=== PATIENT | female | born 1980 | race African-American/Black ===

== ENCOUNTER 2017-05-07 11:39 | Inpatient (IN) ==
--- NOTE | 2017-05-07 12:35 | Emergency Department Note ---
Timothy Woodson Rolonda, am scribing for, and in the presence of, Del Juan MD 12: 30. Yessica Woodson James D, MD, personally performed the services described in this documentation, ascribed by Michelle Aguirre in my presence, and it is both accurate and complete . Arrival - Arrival ED Nursing Triage Note: pt ambulatory to triage with c/o having suicidal ideations with hallucinations. pt states she has been in [facility] 2 times and has been thrown out. pt states she does have a plan to shoot herself in the head. pt states there is people down the road that want to kill her also. Mode of Arrival: Ambulatory Limitations: No Limitations Source: Patient, Old Records Reviewed, RN Notes Reviewed - History of Present Illness Onset (ago): unknown Consistency: constant Severity: severe Severity scale (1-10): 7 <Del Juan - Last Filed: 05/07/17 15:36> <Ty Marcos - Last Filed: 05/07/17 19:18> - Arrival Chief Complaint: Psychiatric Stated Complaint: seeing things that hurt - History of Present Illness HPI Narrative: Pt is a 37 y/o female who presents to the ED for further evaluation of SI with an unknown onset. Pt states that there is someone who is trying to kill her every night. Pt states that she does spice, marijuana, cocaine, and meth. She states that she is wanting to hurt herself. Pt states that she has been to [facility] but she keeps getting kicked out. No other history available. (Michelle Aguirre) Pt is a 37 y/o female who presents to the ED for further evaluation of SI with an unknown onset. Pt states that there is someone who is trying to kill her every night. Pt states that she does spice, marijuana, cocaine, and meth. She states that she is wanting to hurt herself. Pt states that she has been to [facility] but she keeps getting kicked out. No other history available. (Del Juan) Allergies/Adverse Reactions: Allergies Allergy/AdvReac Type Severity Reaction Status Date / Time No Known Allergies Allergy Verified 05/07/17 11:47 Home Medications: Home Medications Medication Instructions Recorded Confirmed Type No Known Home Medications [No 05/07/17 05/07/17 History Known Home Medications] Review of System - Review of System 12 point system: reviewed and no additional remarkable complaints except as stated - Review of System Constitutional: Absent: chills Eyes: Absent: discharge Respiratory: Absent: cough Cardiovascular: Absent: chest pain Gastrointestinal: Absent: abdominal pain Genitourinary female: Absent: dysuria Musculoskeletal: Absent: arthralgia Skin: Absent: rash Psychiatric: Present: suicidal thoughts, auditory hallucinations, visual hallucinations. Absent: anxiety Endocrine: Absent: cold intolerance <Del Juan - Last Filed: 05/07/17 15:36> Medical,Surgical,& Family Hx - Medical History Psychological: History of: Schizophrenia, Psychiatric Problems - Social History Smoking Status: Current every day smoker Frequency of Alcohol Use: Occasionally Type of Drug Use: Cocaine, Heroin, Opiates, Marijuana, Methamphetamine <Del Juan - Last Filed: 05/07/17 15:36> Exam <Del Juan - Last Filed: 05/07/17 15:36> <Ty Marcos - Last Filed: 05/07/17 19:18> Vital Signs: Vital Signs Temperature 99.1 F 05/07/17 12:35 Pulse Rate 116 H 05/07/17 12:35 Respiratory Rate 18 05/07/17 12:35 Blood Pressure 118/87 05/07/17 12:35 O2 Sat by Pulse Oximetry 97 05/07/17 11:41 GENERAL: This is a well-nourished well-developed black female, disheveled in no apparent distress. VITAL SIGNS: Reviewed HEENT: Head is atraumatic and normocephalic. Pupils are equal round react to light. Extraocular movements are intact. Oropharynx is benign with moist mucous membranes. NECK: Neck is soft and supple without tenderness. There are no masses. There is no lymphadenopathy. LUNGS: Lungs are clear to auscultation. Chest rises symmetrically. There is no chest wall tenderness. CV: Heart is regular rate and rhythm without murmurs rubs or gallops. ABDOMEN: Abdomen is soft, nontender to palpation. There are no abdominal abnormal masses palpated. There is no organomegaly. Bowel sounds are present and active. SKIN: Skin is warm and dry. No rash. EXTREMITIES: Patient has full range of motion without tenderness. There is no pedal edema. NEUROLOGIC: Awake alert oriented. Cranial nerves II through XII are grossly intact. Motor is 5 over 5 in all extremities bilaterally. Psychiatric: Depressed mood, pressured speech. (Del Juan) Course <Del Juan - Last Filed: 05/07/17 15:36> - Reevaluation(s) Time: 18:57 <Ty Marcos - Last Filed: 05/07/17 19:18> Course Narrative: [facility] consult placed for psychiatric evaluation. (YessicaDel Jacob) - Reevaluation(s) Reevaluation #1: The patient has remained calm and cooperative here in the ER. The patient was seen in the ER by [facility] who felt she was suicidal. They were not able to accept the patient because they had no beds. The patient was also evaluated by [facility] who also could not accept the patient. Additionally, [facility], [facility], [place] and [facility] were contacted. None could accept patient due to lack of beds. We just had an ICU bed open and I am admitting her to that. I have discussed the patient with the hospitalist service who will see her and admit. ( Ty Marcos) Results - Labs CBC & BMP: 05/07/17 12:51 05/07/17 12:51 Lab Results: I have reviewed the patients labs <Del Juan - Last Filed: 05/07/17 15:36> - Labs CBC & BMP: 05/07/17 12:51 05/07/17 12:51 Lab Results: I have reviewed the patients labs <Ty Marcos - Last Filed: 05/07/17 19:18> - Impressions CT of the head shows no acute intracranial abnormality. Chest x-ray shows no acute abnormality. (Ty Marcos) Disposition Case discussed with: patient <Del Juan - Last Filed: 05/07/17 15:36> Time of Disposition: 18:59 <Ty Marcos - Last Filed: 05/07/17 19:18> Clinical Impression: Suicidal ideations, Polysubstance abuse, Schizoaffective disorder Disposition: Disch/Xfer to Psych Hos Condition: Stable Forms: Work/School Release
--- NOTE | 2017-05-07 12:46 | CT Report ---
CT head/brain wo con Indication: Mental status changes Comparison: CT brain dated August 26, 2011 Technique: Multiple axial tomographic images of the brain were obtained without the use of intravenous contrast. Findings: Midline structures are nondisplaced. There is no convincing evidence of acute intracranial hemorrhage . No convincing evidence of hydrocephalus. The visualized paranasal sinuses and bilateral mastoid air cells are predominantly clear. IMPRESSION: No acute intracranial abnormality demonstrated. The CT exam was performed using one or more of the following dose reduction techniques: Automated exposure control, adjustment of the mA and/or kV according to patient size, or use of iterative reconstruction technique. PROCEDURE INTERPRETED AT [facility] DEPARTMENT OF RADIOLOGY Final Report Signed by: Dr Josh Pavon
--- NOTE | 2017-05-07 12:55 | XRay Report ---
XR chest 2V Indication: SOB Comparison: Chest x-ray dated December 27, 2010 Technique: Frontal and lateral views of the chest. Findings: The cardiomediastinal silhouette is stable in configuration. No focal consolidation, pleural effusion, or pneumothorax. Visualized osseous and surrounding soft tissue structures appear grossly unchanged. IMPRESSION: Stable chest x-ray without acute cardiopulmonary process demonstrated. PROCEDURE INTERPRETED AT [facility] DEPARTMENT OF RADIOLOGY Final Report Signed by: Dr Josh Pavon
[2017-05-07 13:04] LABS: Basophils % 0.1 % (0.0-0.8); Eosinophils # 0.1 10*3/uL (0.0-0.87); Eosinophils % 0.5 % (0.00-10.9); Hematocrit 34.6 VOL% (35.7-47.0); Hemoglobin 11.8 GM/DL (12.0-16.0); Immature Granulocytes % 0.3 %; Immature Granulocytes Absolute 0.03 #; Lymphocytes # 1.4 10*3/uL (1.4-4.0); Lymphocytes % 14.2 % (21.3-54.2); Mean Corpuscular HGB Conc 34.1 GM/DL (32-36); Mean Corpuscular Hemoglobin 31 PG (27-34); Mean Corpuscular Volume 90.6 FL (87-102); Mean Platelet Volume 9.5 FL (9.6-12.0); Monocytes # 0.8 10*3/uL (0.11-0.8); Monocytes % 8.7 % (1.7-12.7); Neutrophils # 7.3 10*3/uL (1.4-7.4); Neutrophils % 76.2 % (38.7-73.9); Platelet Count 203 T/CUMM (130-400); Red Blood Count 3.82 MC/CUMM (3.8-5.5); Red Cell Distribution Width 12.8 % (9.3-17.3); White Blood Count 9.6 T/CUMM (4-12)
[2017-05-07 13:25] LABS: Ammonia 52 UMOL/L (11-32)
[2017-05-07 13:35] LABS: Alanine Aminotransferase 38 U/L (13-56); Albumin 3.7 G/DL (3.4-5.0); Alkaline Phosphatase 69 U/L (45-117); Aspartate Amino Transferase 67 U/L (0-37); Blood Urea Nitrogen 20 MG/DL (7-18); Calcium 8.5 MG/DL (8.5-10.1); Glucose 106 MG/DL (74-106); Osmolality,Calculated 277.7 MOS/KG (273-304); Potassium 3.5 MMOL/L (3.5-5.1); Sodium 138 MMOL/L (136-145); Total Protein 7.8 G/DL (6.4-8.3)
[2017-05-07 15:59] LABS: Barbiturates Screen,Urine Negative (Negative); Benzodiazepines Screen,Urine Negative (Negative); Cannabinoid Screen,Urine Positive (Negative); Opiate Screen,Urine Negative (Negative); Phencyclidine Screen,Urine Negative (Negative)
--- NOTE | 2017-05-07 20:06 | Hospitalist History & Physical ---
Assessment and Plan (1) Schizoaffective disorder Status: Acute Assessment and plan: The patient is moved the hospital due to thoughts of self-harm. The patient has history of schizoaffective disorder. No inpatient psychiatric beds were available to accept the patient so she will be admitted to the intensive care unit here at [facility]. We will restart the patient's Prozac and give Valium as required for anxiety. Current Visit: Yes (2) Polysubstance abuse Status: Acute Current Visit: Yes (3) Suicidal ideations Status: Acute Current Visit: Yes History of Present Illness Chief complaint: Suicidal ideation History of present illness: Ms. Reyes is a 37 year old female with history of schizoaffective disorder. The patient has felt sad today. The patient states that she has had suicidal ideation. The patient reports pain in her low back. The patient states that her pain is moderate, continuous, and waxes and wanes depending upon admission. The pain is not associated with fever, chills, shortness of breath, angina. A complete 10 system review is obtained all systems not mentioned in history of present illness were negative. The patient was screened for tobacco and found to be a daily smoker. The patient was given 4 minutes tobacco avoidance education. I discussed the case with the emergency room physician. Home Medications Medication Instructions Recorded Confirmed Type No Known Home Medications [No 05/07/17 05/07/17 History Known Home Medications] Allergies Allergy/AdvReac Type Severity Reaction Status Date / Time No Known Allergies Allergy Verified 05/07/17 11:47 Medical,Surgical,& Family Hx - Medical History Psychological: History of: Schizophrenia, Psychiatric Problems - Family History Family History: Reports;: Family Hypertension - Social History Smoking Status: Current every day smoker Frequency of Alcohol Use: Occasionally Type of Drug Use: Cocaine, Heroin, Opiates, Marijuana, Methamphetamine Marital Status: Single Lives With:: Significant Other Functional capacity: independent ambulation 12 point system: reviewed and no additional remarkable complaints except as stated Exam - Constitutional Vitals: Period Temp Pulse Resp BP Sys/Cruz Pulse Ox Last 24 Hr 99.1 F-99.1 F 116-116 18-18 118-118/87-87 97 Exam: Constitutional System: Minimal distress. No tremulousness. The patient is cooperative with my examination Head: Normocephalic, atraumatic. Ears, Nose and Throat System: No evidence of Otitis or Mastoiditis. No epistaxis or discharge Eyes System: Pupils equal, round, and reactive. Extraocular muscles intact. Neck: Supple, without adenopathy, No jugular venous distention. No thyromegaly , neck mass, or prior surgery apparent. Respiratory System: Chest clear to auscultation. Cardiovascular System: Heart with regular rate and rhythm. No murmur. GI System: Abdomen soft, nontender. Normo active bowel sounds present. Musculoskeletal System: limbs with no pedal edema. Full distal pulses. Neurological System: No discernable sensory deficit. No aphasia Psychiatric System: Conversation is rational Capillary Refill: less than 2 sec Results - Labs CBC & BMP: 05/07/17 12:51 05/07/17 12:51 Lab Results: I have reviewed the past 24 hour labs
[2017-05-07] MEDS ORDERED: DIAZEPAM 5 MG TABLET PO PRN (20:50)
[2017-05-07] MEDS ORDERED: PROMETHAZINE 25 MG TABLET PO PRN (20:50)
[2017-05-07] MEDS ORDERED: NICOTINE 21 MG/24 HR PATCH TRANSDERM PRN (20:50)
[2017-05-07] MEDS ORDERED: ZALEPLON 5 MG CAPSULE PO PRN (20:50)
[2017-05-07] MEDS ORDERED: ENOXAPARIN 40 MG/0.4 ML SYRINGE SUBCUT SCH (21:00)
[2017-05-07] MEDS ORDERED: SERTRALINE 100 MG TABLET PO SCH (21:00)
[2017-05-07] MEDS: GABAPENTIN 100 MG CAPSULE PO SCH (21:39)
[2017-05-08 06:06] LABS: Basophils % 0.2 % (0.0-0.8); Eosinophils # 0.2 10*3/uL (0.0-0.87); Hematocrit 36.2 VOL% (35.7-47.0); Immature Granulocytes % 0.2 %; Immature Granulocytes Absolute 0.01 #; Lymphocytes # 1.8 10*3/uL (1.4-4.0); Lymphocytes % 36.8 % (21.3-54.2); Mean Corpuscular HGB Conc 33.1 GM/DL (32-36); Mean Corpuscular Hemoglobin 31 PG (27-34); Mean Corpuscular Volume 92.8 FL (87-102); Monocytes # 0.5 10*3/uL (0.11-0.8); Monocytes % 10.5 % (1.7-12.7); Neutrophils # 2.4 10*3/uL (1.4-7.4); Neutrophils % 48.3 % (38.7-73.9); Platelet Count 203 T/CUMM (130-400)
[2017-05-08 06:46] LABS: Blood Urea Nitrogen 19 MG/DL (7-18); Calcium 8.4 MG/DL (8.5-10.1); Glucose 110 MG/DL (74-106); Magnesium 2.6 MG/DL (1.8-2.4); Potassium 3.5 MMOL/L (3.5-5.1); Sodium 143 MMOL/L (136-145); Troponin I Only < 0.015 NG/ML (0.00-0.045)
[2017-05-08] MEDS: GABAPENTIN 100 MG CAPSULE PO SCH (08:27)
[2017-05-08] MEDS ORDERED: PANTOPRAZOLE 40 MG TABLET PO SCH (09:00)
--- NOTE | 2017-05-08 12:03 | Hospitalist Progress Note ---
Assessment and Plan - Time spent with patient Time spent with patient: Less than 30 minutes (1) Suicidal ideations Status: Acute Assessment and plan: 37-year-old -[place] female with history of schizoaffective disorder admitted by the hospitalist on 05/07/2017 with thoughts of self-harm. Patient did have positive urine drug screen for cocaine and marijuana. Dr. Horn will see and examine patient and further recommendations to follow. Schizoaffective disorder/polysubstance abuse--patient has just been discharged from inpatient at [facility]. They have been called and medicines have been verified in the computer. I will go ahead and restart these. We will also give her as needed Ativan and/or Valium as required for anxiety. Suicidal ideation--patient is to be evaluated by [facility]. She also states she was supposed to be discharged into a long term and this never happened for one reason or another. animal husbandry worker is working on all these avenues. Hopefully the restarting of her medications will help with this. Current Visit: Yes (2) Polysubstance abuse Status: Acute Current Visit: Yes (3) Schizoaffective disorder Status: Acute Current Visit: Yes Hospitalist: Subjective Interval history: Ms. Tse still feels like harming herself today. She is sad and feels like people are trying to kill her. She states she was just discharged from [facility] where she spent a month for schizoaffective disorder. She states they were supposed to discharge her into a long term but they just sent her out into the street. She is having a little bit of anxiety and is requesting some medication for this. She states [facility] discharged her on Latuda, trazodone, and Prozac but she has not taken these medicines in 4-5 days. Exam - Constitutional Vitals: Period Temp Pulse Resp BP Sys/Cruz Pulse Ox Last 24 Hr 95 F-99.1 F 73-116 17-27 91-118/53-87 93-97 Exam: 37-year-old -[place] female, mildly anxious, alert and oriented Chest clear CV regular rate and rhythm Abdomen soft and nontender Extremities no edema Results - Labs CBC & BMP: 05/08/17 05:40 05/08/17 05:40 Lab Results: I have reviewed the past 24 hour labs Specialty Discharge - Follow Up or Referrals
[2017-05-08] MEDS ORDERED: PALIPERIDONE 3 MG TABLET PO SCH (12:30)
[2017-05-08] MEDS ORDERED: LORazepam 2 MG/1 ML VIAL IV PRN (13:11)
--- NOTE | 2017-05-08 14:50 | Discharge Summary ---
Hospital Course - Hospital Course Hospital Course: 37-year-old female with history of schizoaffective disorder and polysubstance abuse was admitted by the hospitalist service on 05/07/2017 with thoughts of self-harm. She did have positive urine drug screen for cocaine and marijuana. She had recently been discharged after spending 1 month in inpatient at [facility] and was discharged on several medications. She has not taken those medications in 4-5 days. She still is having suicidal ideation and feels like people are trying to kill her. [facility] has accepted patient so we will transfer her there today on her current medications. Care coordination, chart review, and completed discharge paperwork took approximately 32 minutes. - Time spent with patient Time with patient DS: Greater than 30 minutes Diagnosis - Discharge Diagnosis (1) Suicidal ideations Status: Acute (2) Polysubstance abuse Status: Chronic (3) Schizoaffective disorder Status: Chronic Specialty Discharge - Follow Up or Referrals Discharge Plan - Discharge Data Disposition: Disch/Xfer to Psych Hos Condition at Discharge: Stable Discharge Diet: advance to your usual diet Activity: resume usual activities as tolerated Driving: not until seen by doctor - Discharge Medications New Diazepam Tab [Valium Tab] 5 mg PO TID PRN #60 tablet PRN Reason: Anxiety Continue Omeprazole [Prilosec] 20 mg PO DAILY W/BREAKFAST Paliperidone [Invega] 6 mg PO DAILY #30 Trazodone HCl 100 mg PO BEDTIME #30 - Follow Up or Referral - Forms/Instructions Forms: Work/School Release Exam - Constitutional Vitals: Period Temp Pulse Resp BP Sys/Cruz Pulse Ox Last 24 Hr 95 F-98.4 F 73-97 17-27 91-115/52-74 93-97 Exam: 37-year-old -Mauritian female, no acute distress, alert and oriented Chest clear CV regular rate and rhythm Abdomen obese, nontender Extremities no edema Discharge Results Labs on day of discharge: Labs from last 24 hours 05/08/17 05/08/17 05/07/17 05:40 05:40 15:38 WBC 5.0 D RBC 3.90 Hgb 12.0 Hct 36.2 MCV 92.8 MCH 31 MCHC 33.1 RDW 13.0 Plt Count 203 MPV 10.0 Neut % (Auto) 48.3 Lymph % (Auto) 36.8 [place] % (Auto) 10.5 Eos % (Auto) 4.0 Baso % (Auto) 0.2 Neut # (Auto) 2.4 Lymph # (Auto) 1.8 [place] # (Auto) 0.5 Eos # (Auto) 0.2 Baso # (Auto) 0.0 Immature Gran % 0.2 Nucleated RBC % 0.0 Immature Gran # 0.01 Nucleated RBCs # 0.00 Immature Plt Fraction 0.0 Sodium 143 Potassium 3.5 Chloride 110 H Carbon Dioxide 27 Anion Gap 9.5 BUN 19 H Creatinine 1.00 GFR Calculation 101 BUN/Creatinine Ratio 19.00 Glucose 110 H Calculated Osmolality 287.0 Calcium 8.4 L Magnesium 2.6 H Total Creatine Kinase 1143 H Troponin I < 0.015 Urine Test Negative Urine Opiates Screen Ur Barbiturates Screen Ur Phencyclidine Scrn U Amphetamine/Methamph U Benzodiazepines Scrn U Cocaine Metab Screen U Cannabinoids Screen 05/07/17 15:38 WBC RBC Hgb Hct MCV MCH MCHC RDW Plt Count MPV Neut % (Auto) Lymph % (Auto) [place] % (Auto) Eos % (Auto) Baso % (Auto) Neut # (Auto) Lymph # (Auto) [place] # (Auto) Eos # (Auto) Baso # (Auto) Immature Gran % Nucleated RBC % Immature Gran # Nucleated RBCs # Immature Plt Fraction Sodium Potassium Chloride Carbon Dioxide Anion Gap BUN Creatinine GFR Calculation BUN/Creatinine Ratio Glucose Calculated Osmolality Calcium Magnesium Total Creatine Kinase Troponin I Urine Test Urine Opiates Screen Negative Ur Barbiturates Screen Negative Ur Phencyclidine Scrn Negative U Amphetamine/Methamph Negative U Benzodiazepines Scrn Negative U Cocaine Metab Screen Positive H U Cannabinoids Screen Positive H DS: Provider Date of admission: 05/07/17 19:57 Primary care physician: . No PCP Attending physician on admission: James Lazcano MD Discharging clinician: JIAN Couch Expected date of discharge: 05/08/17
[2017-05-08 16:39] VITALS: BP 109/67
[2017-05-08] MEDS ORDERED: traZODone 50 MG TABLET PO SCH (21:00)
[2017-05-09] MEDS ORDERED: PALIPERIDONE 3 MG TABLET PO SCH (09:00)
== END 2017-05-08 19:11 | DRG 885 ==
LOC: N.ED 11:39 → SUATTDRO 19:57 → N.EDINP 19:57 → N.ICU 20:19 → N.2E 05-08 01:46
PROVIDERS: ADMIT Internal Medicine; ATTEND Hospitalist

== ENCOUNTER 2017-06-03 22:27 | Inpatient (IN) ==
[2017-06-03] MEDS ORDERED: LIDOCAINE 1%/EPI INJ 20 ML VIAL ONE (23:13)
[2017-06-03 23:44] LABS: Basophils % 0.2 % (0.0-0.8); Eosinophils # 0.1 10*3/uL (0.0-0.87); Eosinophils % 0.5 % (0.00-10.9); Hematocrit 37.2 VOL% (35.7-47.0); Hemoglobin 12.2 GM/DL (12.0-16.0); Immature Granulocytes % 0.5 %; Immature Granulocytes Absolute 0.05 #; Lymphocytes # 1.6 10*3/uL (1.4-4.0); Lymphocytes % 15.3 % (21.3-54.2); Mean Corpuscular HGB Conc 32.8 GM/DL (32-36); Mean Corpuscular Hemoglobin 31 PG (27-34); Mean Corpuscular Volume 93.7 FL (87-102); Mean Platelet Volume 9.6 FL (9.6-12.0); Monocytes # 0.8 10*3/uL (0.11-0.8); Monocytes % 7.6 % (1.7-12.7); Neutrophils % 75.9 % (38.7-73.9); Platelet Count 284 T/CUMM (130-400); Red Blood Count 3.97 MC/CUMM (3.8-5.5); Red Cell Distribution Width 13.9 % (9.3-17.3); White Blood Count 10.6 T/CUMM (4-12)
[2017-06-03 23:54] LABS: Apearance,Urine CLOUDY (Clear); Bacteria,Urine Many /HPF (Few); Bilirubin,Urine Negative (Negative); Blood, Urine Small mg/dL (Negative); Glucose,Urine (UA) Negative (Negative); Hyaline Casts,Urine 8 /LPF (0-3); Ketones,Urine 5 mg/dL (Negative); Mucus,Urine Moderate /LPF (Occasional); Nitrite,Urine Negative (Negative); Protein,Urine 100 MG/DL; RBC,Urine 2 /HPF (0-4); Squamous Epithelial Cell,Urine Occasional /HPF (0-10); Urine Color Yellow (Yellow); Urine Urobilinogen < 2.0 EU/DL (0.2-1.0); WBC,Urine 4 /HPF (0-6)
[2017-06-04] MEDS ORDERED: LORazepam 1 MG TABLET PO STA (00:03)
[2017-06-04 00:09] LABS: Barbiturates Screen,Urine Negative (Negative); Benzodiazepines Screen,Urine Negative (Negative); Cannabinoid Screen,Urine Positive (Negative); Opiate Screen,Urine Negative (Negative); Phencyclidine Screen,Urine Negative (Negative)
[2017-06-04 00:11] LABS: Alanine Aminotransferase 27 U/L (13-56); Albumin 3.8 G/DL (3.4-5.0); Alkaline Phosphatase 99 U/L (45-117); Aspartate Amino Transferase 32 U/L (0-37); Bilirubin,Total < 0.39 MG/DL (0.2-1.0); Blood Urea Nitrogen 11 MG/DL (7-18); Calcium 8.9 MG/DL (8.5-10.1); Glucose 80 MG/DL (74-106); Osmolality,Calculated 274.5 MOS/KG (273-304); Sodium 139 MMOL/L (136-145)
[2017-06-04] MEDS ORDERED: LORazepam 1 MG TABLET ONE (00:11)
--- NOTE | 2017-06-04 04:10 | Emergency Department Note ---
Arrival - Arrival ED Nursing Triage Note: C/O Self inflicted laceration to left wrist/forearm. Onset a few minutes ago. Moist dressing applied to lacertion. Pt reports that she has attempted suicide in the past. Pt reports that she has been off of medication for psychiatric disorders for approx 4 days. Pt states that people are after her and wanting to hurt her. +flights of ideas at time of triage. Pt reports using drugs (crack, weed, meth). Pt reports that she has not been able to sleep for 2 days. Pt states that she was recently discharged from [facility] , but doesn't want to go back there. Mode of Arrival: Ambulatory - History of Present Illness Date of Last Menstrual Period: 4 days ago <Bob Hartley - Last Filed: 06/04/17 04:08> <Del Juan - Last Filed: 06/04/17 08:36> - Arrival Chief Complaint: Psychiatric Stated Complaint: cut left wrist, intentionally Time Seen by Provider: 06/03/17 23:08 - History of Present Illness HPI Narrative: This is a 37-year-old female of descent with schizoaffective disorder and polysubstance abuse who presents with suicidal ideations and self-inflicted laceration to the left forearm using a glass bottle. (Bob Hartley) Allergies/Adverse Reactions: Allergies Allergy/AdvReac Type Severity Reaction Status Date / Time No Known Allergies Allergy Verified 05/07/17 11:47 Home Medications: Home Medications Medication Instructions Recorded Confirmed Type Diazepam Tab [Valium Tab] 5 mg PO TID PRN #60 tablet 05/08/17 06/03/17 Rx Omeprazole [Prilosec] 20 mg PO DAILY W/BREAKFAST 05/08/17 06/03/17 History Paliperidone [Invega] 6 mg PO DAILY #30 05/08/17 06/03/17 Rx Trazodone HCl 100 mg PO BEDTIME #30 05/08/17 06/03/17 Rx Review of System - Review of System Constitutional: Absent: fever, night sweats Eyes: Absent: redness, vision change Head/Ears/Nose/Throat: Absent: epistaxis, nasal drainage Respiratory: Absent: respiratory distress, wheezing Cardiovascular: Absent: dyspnea on exertion, orthopnea Gastrointestinal: Absent: nausea, diarrhea, constipation Genitourinary female: Absent: dysuria, frequency Musculoskeletal: Absent: lower back pain, leg pain Skin: Present: other (10 cm laceration the left forearm is present) Neurological: Absent: numbness, paresthesias, confusion Psychiatric: Present: suicidal thoughts, auditory hallucinations. Absent: homicidal thoughts Endocrine: Absent: polydipsia, polyuria Hematological/Lymphatic: Absent: easy bruising, lymphadenopathy Allergic/Immunologic: Absent: urticaria, itchy eyes <Bob Hartley - Last Filed: 06/04/17 04:08> Medical,Surgical,& Family Hx - Medical History Psychological: History of: Anxiety Disorders, ADHD, Depression, Previous Suicide Attempt, Schizophrenia, Psychiatric Problems (explosive anger disorder, schizo effective, antisocial personality) Respiratory: History of: Bronchitis Musculoskeletal: History of: Back/Neck Problems (chronic) - Family History Family History: Reports;: Family Hypertension - Social History Smoking Status: Current every day smoker Frequency of Alcohol Use: None Type of Drug Use: None <Bob Hartley Last Filed: 06/04/17 04:08> Exam - General General appearance: alert - Eye Eye exam: Present: PERRL, EOMI - ENT ENT exam: Present: normal exam, normal oropharynx - Neck Neck exam: Present: normal inspection, full ROM - Chest Chest inspection: Present: normal inspection, symmetric chest wall rise - Respiratory Respiratory exam: Present: normal lung sounds bilaterally - Cardiovascular Cardiovascular exam: Present: regular rate, normal rhythm - Abdominal Exam Abdominal exam: Present: soft, normal bowel sounds - Extremities Exam Extremities exam: Present: other (10 cm laceration left forearm is present) - Back Exam Back exam: Present: normal inspection, full ROM - Neurological Exam Neurological exam: Present: alert, oriented X3, CN II-XII intact - Psychiatric Psychiatric exam: Present: suicidal ideation - Skin Skin exam: Present: warm, dry <Bob Hartley - Last Filed: 06/04/17 04:08> Vital Signs: Vital Signs Temperature 98.7 F 06/03/17 22:36 Pulse Rate 78 06/04/17 00:05 Respiratory Rate 18 06/04/17 00:05 Blood Pressure 114/68 06/04/17 00:05 O2 Sat by Pulse Oximetry 99 06/04/17 00:05 Course <Bob Hartley - Last Filed: 06/04/17 04:08> - Reevaluation(s) Time: 06:55 - Consultations Time: 08:36 <Del Juan - Last Filed: 06/04/17 08:36> Course Narrative: Procedure note: Using 1% lidocaine with epinephrine and after Betadine scrub and irrigation with saline the 10 cm laceration to left forearm was closed with 3-0 nylon 10. (Bob Hartley) - Reevaluation(s) Reevaluation #1: Care assumed by me at 0700. Patient will be evaluated by [facility] psychiatric services for possible bed. [facility] is called back [id number]. They have no psychiatric beds. Patient be admitted to the hospitalist (Del Juan) - Consultations Consultation #1: Discussed with hospitalist. (Del Juan) Results - Labs CBC & BMP: 06/03/17 22:58 06/03/17 22:58 <Bob Hartley - Last Filed: 06/04/17 04:08> - Labs CBC & BMP: 06/03/17 22:58 06/03/17 22:58 <Del Juan - Last Filed: 06/04/17 08:36> Disposition <Bob Hartley - Last Filed: 06/04/17 04:08> Case discussed with: patient <Del Juan - Last Filed: 06/04/17 08:36> Clinical Impression: Suicidal ideations, Wrist laceration Condition: Guarded
[2017-06-04] MEDS ORDERED: guaiFENesin/DM ER 600-30 MG TABLET PO PRN (09:18)
[2017-06-04] MEDS ORDERED: DOCUSATE SODIUM 100 MG CAPSULE PO PRN (09:18)
[2017-06-04] MEDS ORDERED: diphenhydrAMINE CAP 25 MG CAPSULE PO PRN (09:18)
[2017-06-04] MEDS ORDERED: ACETAMINOPHEN 325 MG TABLET PO PRN ×2 (09:18→10:24)
[2017-06-04] MEDS ORDERED: ONDANSETRON 4 MG/2 ML VIAL IV PRN (09:18)
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
[2017-06-04] MEDS: PALIPERIDONE 3 MG TABLET PO SCH (13:12)
[2017-06-04] MEDS: DIAZEPAM 5 MG TABLET PO PRN ×2 (13:26→19:57)
[2017-06-04] MEDS: ENOXAPARIN 40 MG/0.4 ML SYRINGE SUBCUT SCH (13:26)
[2017-06-04] MEDS: PANTOPRAZOLE 40 MG TABLET PO SCH (13:27)
[2017-06-04] MEDS ORDERED: INFLUENZA VIRUS VACCINE 0.5 ML SYRINGE IM ONE (15:35)
[2017-06-04] MEDS: ACETAMINOPHEN 325 MG TABLET PO PRN (19:55)
[2017-06-04] MEDS ORDERED: traZODone 50 MG TABLET PO SCH (20:00)
[2017-06-05] MEDS: ACETAMINOPHEN 325 MG TABLET PO PRN (02:30)
[2017-06-05] MEDS ORDERED: PALIPERIDONE 3 MG PO SCH (09:00)
[2017-06-05] MEDS: PANTOPRAZOLE 40 MG TABLET PO SCH (09:00)
[2017-06-05] MEDS: PALIPERIDONE 3 MG TABLET PO SCH (09:00)
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
[2017-06-05] MEDS: ENOXAPARIN 40 MG/0.4 ML SYRINGE SUBCUT SCH (13:35)
[2017-06-05 13:45] VITALS: BP 129/81
== END 2017-06-05 15:30 | DRG 384 ==
LOC: N.ED 22:27 → N.EDINP 06-04 09:18 → SUATTDRO 06-04 09:18 → N.EDINP 06-04 12:25 → N.ICU 06-04 12:29
PROVIDERS: ADMIT Internal Medicine; ATTEND Hospitalist

== ENCOUNTER 2018-11-18 14:05 | Inpatient (IN) ==
[~2018-11-18 14:05] MED LIST: diphenhydrAMINE 50 MG/1 ML VIAL ONE
[2018-11-18] MEDS ORDERED: LORazepam 2 MG/1 ML VIAL ONE (14:06)
[2018-11-18] MEDS ORDERED: HALOPERIDOL 5 MG/ML AMP ONE (14:06)
[2018-11-18] MEDS ORDERED: HALOPERIDOL 5 MG/ML AMP IM STA (15:03)
[2018-11-18] MEDS ORDERED: diphenhydrAMINE 50 MG/1 ML VIAL IM STA (15:03)
[2018-11-18] MEDS ORDERED: LORazepam 2 MG/1 ML VIAL IM STA (15:03)
[2018-11-18 15:34] LABS: Basophils # 0.1 10*3/uL (0.0-0.2); Basophils % 0.4 % (0.0-0.8); Eosinophils # 0.2 10*3/uL (0.0-0.87); Eosinophils % 1.5 % (0.00-10.9); Hematocrit 37.4 VOL% (35.7-47.0); Hemoglobin 11.9 GM/DL (12.0-16.0); Immature Granulocytes % 0.5 %; Immature Granulocytes Absolute 0.06 #; Lymphocytes # 2.6 10*3/uL (1.4-4.0); Lymphocytes % 20.9 % (21.3-54.2); Mean Corpuscular HGB Conc 31.8 GM/DL (32-36); Mean Corpuscular Hemoglobin 31 PG (27-34); Mean Corpuscular Volume 96.9 FL (87-102); Mean Platelet Volume 9.8 FL (9.6-12.0); Monocytes # 1.5 10*3/uL (0.11-0.8); Monocytes % 11.8 % (1.7-12.7); Neutrophils % 64.9 % (38.7-73.9); Platelet Count 269 T/CUMM (130-400); Red Blood Count 3.86 MC/CUMM (3.8-5.5); Red Cell Distribution Width 11.9 % (9.3-17.3); White Blood Count 12.4 T/CUMM (4-12)
[2018-11-18 16:01] LABS: Barbiturates Screen,Urine Negative (Negative); Benzodiazepines Screen,Urine Negative (Negative); Cannabinoid Screen,Urine Positive (Negative); Opiate Screen,Urine Negative (Negative); Phencyclidine Screen,Urine Negative (Negative)
[2018-11-18 16:31] LABS: Albumin 3.5 G/DL (3.4-5.0); Bilirubin,Total 0.8 MG/DL (0.2-1.0); Calcium 8.2 MG/DL (8.5-10.1); Osmolality,Calculated 280.4 MOS/KG (273-304); Potassium 3.5 MMOL/L (3.5-5.1); Thyroid Stimulating Hormone 2.46 uIU/ml (0.358-3.74); Total Protein 7.5 G/DL (6.4-8.3)
[2018-11-18] MEDS ORDERED: ONDANSETRON 4 MG/2 ML VIAL IV PRN (18:04)
[2018-11-18] MEDS ORDERED: ALBUTEROL 2.5 MG/3 ML NEB RESP TX PRN (18:04)
[2018-11-18] MEDS ORDERED: THIAMINE INJ 100 MG, FOLIC ACID INJ 1 MG, MULTIVITAMIN INJ 10 ML in SODIUM CHLORIDE 0.9... IV ONE (18:09)
[2018-11-18] MEDS ORDERED: HALOPERIDOL 5 MG/ML AMP IV PRN ×2 (18:10→21:00)
[2018-11-18] MEDS ORDERED: LORazepam 2 MG/1 ML VIAL IV PRN ×2 (18:11→21:00)
[2018-11-18] MEDS ORDERED: diphenhydrAMINE 50 MG/1 ML VIAL IV PRN (21:00)
[2018-11-18] MEDS: ENOXAPARIN 40 MG/0.4 ML SYRINGE SUBCUT SCH (22:01)
[2018-11-19] MEDS: SODIUM CHLORIDE 0.9% 1,000 ML IV SCH ×3 (02:24→18:01)
[2018-11-19 05:15] LABS: Basophils % 0.3 % (0.0-0.8); Eosinophils # 0.2 10*3/uL (0.0-0.87); Eosinophils % 1.6 % (0.00-10.9); Hematocrit 40.4 VOL% (35.7-47.0); Hemoglobin 12.8 GM/DL (12.0-16.0); Immature Granulocytes % 0.3 %; Immature Granulocytes Absolute 0.04 #; Lymphocytes # 1.1 10*3/uL (1.4-4.0); Lymphocytes % 9.5 % (21.3-54.2); Mean Corpuscular HGB Conc 31.7 GM/DL (32-36); Mean Corpuscular Hemoglobin 31 PG (27-34); Mean Corpuscular Volume 98.5 FL (87-102); Mean Platelet Volume 9.5 FL (9.6-12.0); Monocytes # 1.6 10*3/uL (0.11-0.8); Monocytes % 13.4 % (1.7-12.7); Neutrophils # 8.7 10*3/uL (1.4-7.4); Neutrophils % 74.9 % (38.7-73.9); Platelet Count 229 T/CUMM (130-400); Red Cell Distribution Width 12.2 % (9.3-17.3); White Blood Count 11.6 T/CUMM (4-12)
[2018-11-19 05:27] LABS: Calcium 7.9 MG/DL (8.5-10.1); Osmolality,Calculated 280.1 MOS/KG (273-304); Potassium 3.6 MMOL/L (3.5-5.1)
[2018-11-19] MEDS ORDERED: DEXTROSE 50% 25 GM/50 ML SYRINGE IV ONE (05:58)
[2018-11-19] MEDS: DEXTROSE 50% 25 GM/50 ML SYRINGE IV PRN ×2 (06:13→08:17)
[2018-11-19] MEDS: risperiDONE 1 MG TABLET PO SCH ×2 (12:55→21:38)
[2018-11-19] MEDS: BENZTROPINE 1 MG TABLET PO SCH ×2 (12:55→21:38)
[2018-11-19] MEDS: ENOXAPARIN 40 MG/0.4 ML SYRINGE SUBCUT SCH (21:38)
[2018-11-20] MEDS: SODIUM CHLORIDE 0.9% 1,000 ML IV SCH (02:01)
[2018-11-20 05:43] VITALS: BP 124/69
[2018-11-20] MEDS: BENZTROPINE 1 MG TABLET PO SCH (08:35)
[2018-11-20] MEDS: risperiDONE 1 MG TABLET PO SCH (08:35)
== END 2018-11-20 10:10 | disposition home or self-care (01) | DRG 774 ==
LOC: EDBD → EDUNIT# → N.ED 14:05 → SUATTDRO 17:24 → N.EDINP 17:24 → N.ICU 21:11
PROVIDERS: ADMIT Internal Medicine; ATTEND Internal Medicine Cardiovascular Disease

== ENCOUNTER 2021-04-19 10:38 | Observation (INO) ==
[2021-04-19] MEDS ORDERED: ZIPRASIDONE 20 MG/1 ML VIAL IM STA (10:44)
[2021-04-19 10:49] VITALS: BP 159/112
[2021-04-19] MEDS ORDERED: KETAMINE 500 MG/10 ML VIAL ONE (10:57)
[2021-04-19] MEDS ORDERED: KETAMINE 500 MG/10 ML VIAL IM STA (11:06)
[2021-04-19] MEDS ORDERED: SODIUM CHLORIDE 0.9% 1,000 ML IV STA (11:10)
[2021-04-19 11:35] LABS: Basophils % 0.2 % (0.0-0.8); Eosinophils # 0.1 10*3/uL (0.0-0.87); Eosinophils % 1.3 % (0.00-10.9); Hematocrit 38.8 VOL% (35.7-47.0); Hemoglobin 12.8 GM/DL (12.0-16.0); Immature Granulocytes % 0.2 %; Immature Granulocytes Absolute 0.02 #; Lymphocytes % 20.8 % (21.3-54.2); Mean Corpuscular Volume 90.7 FL (87-102); Mean Platelet Volume 10.8 FL (9.6-12.0); Monocytes % 8.9 % (1.7-12.7); Neutrophils % 68.6 % (38.7-73.9); Platelet Count 265 T/CUMM (130-400); Red Blood Count 4.28 MC/CUMM (3.8-5.5); Red Cell Distribution Width 13.2 % (9.3-17.3); White Blood Count 9.4 T/CUMM (4-12)
[2021-04-19 11:59] LABS: Barbiturates Screen,Urine Negative (Negative); Benzodiazepines Screen,Urine Negative (Negative); Cannabinoid Screen,Urine Positive (Negative); Opiate Screen,Urine Negative (Negative); Phencyclidine Screen,Urine Negative (Negative)
[2021-04-19 12:39] LABS: Alanine Aminotransferase 19 U/L (13-56); Albumin 3.6 G/DL (3.4-5.0); Alkaline Phosphatase 73 U/L (45-117); Aspartate Amino Transferase 35 U/L (0-37); Blood Urea Nitrogen 22 MG/DL (7-18); Calcium 8.4 MG/DL (8.5-10.1); Carbon Dioxide 23 MMOL/L (21-32); Estimated Glom Filtration Rate 91 ML/MIN; Glucose 95 MG/DL (74-106); Potassium 2.7 MMOL/L (3.5-5.1); Sodium 136 MMOL/L (136-145)
[2021-04-19] MEDS ORDERED: VALPROIC ACID INJ 1,000 MG in SODIUM CHLORIDE 0.9% 100 ML IV STA (13:01)
[2021-04-19] MEDS ORDERED: OLANZapine 10 MG VIAL IM ONE ×2 (14:31→15:00)
[2021-04-19] MEDS: POTASSIUM CHLORIDE RIDER 10 MEQ/100 ML PREMIX IV SCH ×6 (16:04→23:10)
[2021-04-19] MEDS ORDERED: ONDANSETRON 4 MG/2 ML VIAL IV PRN (17:58)
[2021-04-19] MEDS ORDERED: ENOXAPARIN 30 MG/0.3 ML SYRINGE SUBCUT SCH (18:00)
[2021-04-19] MEDS ORDERED: ZIPRASIDONE 20 MG/1 ML VIAL IM PRN (18:10)
[2021-04-19] MEDS ORDERED: POTASSIUM CHLORIDE RIDER 10 MEQ/100 ML PREMIX IV SCH (18:30)
[2021-04-19] MEDS ORDERED: traZODone 50 MG TABLET PO SCH (21:00)
[2021-04-19] MEDS ORDERED: risperiDONE 1 MG TABLET PO SCH (21:00)
[2021-04-19] MEDS ORDERED: DIVALPROEX 500 MG TABLET PO SCH (21:00)
[2021-04-19] MEDS: VALPROIC ACID INJ 500 MG in SODIUM CHLORIDE 0.9% 100 ML IV SCH (22:25)
[2021-04-19] MEDS: OLANZapine 10 MG VIAL IM PRN (23:06)
[2021-04-20 03:02] LABS: Bacteria,Urine Occasional /HPF (Few); Bilirubin,Urine Negative (Negative); Blood, Urine Negative (Negative); Glucose,Urine (UA) Negative (Negative); Ketones,Urine 5 mg/dL (Negative); Mucus,Urine Occasional /LPF (Occasional); Nitrite,Urine Negative (Negative); Protein,Urine Negative; RBC,Urine 1 /HPF (0-4); Squamous Epithelial Cell,Urine Occasional /HPF (0-10); Urine Appearance CLEAR (Clear); Urine Color Yellow (Yellow); Urine Specific Gravity 1.009 (1.001-1.035); Urine Urobilinogen < 2.0 EU/DL (0.2-1.0)
[2021-04-20 03:11] LABS: Basophils % 0.3 % (0.0-0.8); Eosinophils # 0.1 10*3/uL (0.0-0.87); Eosinophils % 1.5 % (0.00-10.9); Hematocrit 39.1 VOL% (35.7-47.0); Hemoglobin 12.8 GM/DL (12.0-16.0); Immature Granulocytes % 0.5 %; Immature Granulocytes Absolute 0.04 #; Lymphocytes # 1.6 10*3/uL (1.4-4.0); Lymphocytes % 20.7 % (21.3-54.2); Mean Corpuscular HGB Conc 32.7 GM/DL (32-36); Mean Corpuscular Volume 94.2 FL (87-102); Mean Platelet Volume 9.3 FL (9.6-12.0); Monocytes % 8.4 % (1.7-12.7); Neutrophils % 68.6 % (38.7-73.9); Platelet Count 241 T/CUMM (130-400); Red Blood Count 4.15 MC/CUMM (3.8-5.5); Red Cell Distribution Width 13.6 % (9.3-17.3); White Blood Count 7.9 T/CUMM (4-12)
[2021-04-20] MEDS: OLANZapine 10 MG VIAL IM PRN (07:22)
[2021-04-20] MEDS ORDERED: HALOPERIDOL 5 MG/ML AMP IM PRN (08:23)
[2021-04-20] MEDS: VALPROIC ACID INJ 500 MG in SODIUM CHLORIDE 0.9% 100 ML IV SCH (09:04)
== END 2021-04-20 15:57 | disposition home or self-care (01) ==
LOC: EDUNIT# → EDBD → N.ED 10:38 → N.EDINP 10:38 → SUATTDRO 17:58 → N.EDINP 04-20 15:45
PROVIDERS: ADMIT Internal Medicine; ATTEND Internal Medicine